=== PATIENT | male | born 1985 | race Caucasian/White ===

== ENCOUNTER 2016-10-28 15:32 | Emergency (ER) | payer MEDICARE, MEDICAID ==
[2016-10-28 15:55] VITALS: BP 112/82
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
== END 2016-10-28 16:43 | disposition home or self-care (01) ==
LOC: UCCORT 15:32
DX: J02.9 Acute pharyngitis, unspecified (principal); I10 Essential (primary) hypertension; Z87.891 Personal history of nicotine dependence
CPT/HCPCS: 99212; G0463

== ENCOUNTER 2016-12-24 19:38 | Emergency (ER) | payer MEDICARE, MEDICAID ==
[2016-12-24 20:18] VITALS: BP 134/77
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
[2016-12-24] MEDS ORDERED: Sulfamethox/Trimethoprim DS 800/160* TAB PO ONE (20:53)
== END 2016-12-24 21:11 | disposition home or self-care (01) ==
LOC: UCCORT 19:38
DX: L03.114 Cellulitis of left upper limb (principal); E66.9 Obesity, unspecified; Z87.891 Personal history of nicotine dependence
CPT/HCPCS: 99212; A9270-GY; G0463

== ENCOUNTER 2017-01-04 12:37 | Emergency (ER) | payer MEDICARE, MEDICAID ==
[2017-01-04 13:34] VITALS: BP 125/77
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
--- NOTE | 2017-01-04 14:13 | RAD ---
Indication: Left shoulder pain. 3 views of left shoulder demonstrates no fracture. Calcific tendinitis of the distal supraspinatous tendon is noted. No fracture is noted. IMPRESSION: No fracture is identified. Likely calcific tendinitis of the distal supraspinatous tendon.
== END 2017-01-04 14:40 | disposition home or self-care (01) ==
LOC: UCCORT 12:37
DX: M25.512 Pain in left shoulder (principal); Z87.891 Personal history of nicotine dependence
CPT/HCPCS: 99212; G0463

== ENCOUNTER 2017-08-08 16:18 | Emergency (ER) | payer MEDICARE, MEDICAID ==
[2017-08-08 18:49] VITALS: BP 119/79
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
== END 2017-08-08 19:13 | disposition home or self-care (01) ==
LOC: UCCORT 16:18
DX: K02.9 Dental caries, unspecified (principal); Z87.891 Personal history of nicotine dependence; G40.909 Epilepsy, unspecified, not intractable, without status epilepticus; K03.81 Cracked tooth
CPT/HCPCS: 99212; G0463

== ENCOUNTER 2017-11-22 09:19 | Emergency (ER) | payer MEDICARE, MEDICAID ==
[2017-11-22 11:02] VITALS: BP 126/79
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
== END 2017-11-22 11:53 | disposition home or self-care (01) ==
LOC: UCCORT 09:19
DX: K04.7 Periapical abscess without sinus (principal); K02.9 Dental caries, unspecified; S02.5XXA Fracture of tooth (traumatic), initial encounter for closed fracture; Z87.891 Personal history of nicotine dependence
CPT/HCPCS: 99212; G0463

== ENCOUNTER 2019-06-26 19:06 | Emergency (ER) | payer MEDICARE, MEDICAID ==
[2019-06-26 20:05] VITALS: BP 145/97
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
[2019-06-26] MEDS ORDERED: Lidocaine 2% VISCOUS* 15 ML UDC TOPICAL ONE (20:30)
[2019-06-26] MEDS ORDERED: Amoxicillin PO (*) 500 MG CAP PO ONE (20:30)
[2019-06-26] MEDS ORDERED: Ketorolac INJ* 30 MG/ML 1 ML VIAL IM ONE (20:31)
== END 2019-06-26 20:54 | disposition home or self-care (01) ==
LOC: UCCORT 19:06
DX: K08.89 Other specified disorders of teeth and supporting structures (principal); K08.109 Complete loss of teeth, unspecified cause, unspecified class; Z87.891 Personal history of nicotine dependence
CPT/HCPCS: 96372; 99212; A9270-GY; G0463; J1885